=== PATIENT | female | born 1970 | race Caucasian/White ===

== ENCOUNTER 2020-11-27 18:49 | Emergency (ER) | payer BC ==
[2020-11-27] MEDS ORDERED: cefTRIAXone 1 GM Vial IM ONE (19:40)
--- NOTE | 2020-11-27 19:46 | EDM.PDOC ---
ED HPI GENERAL MEDICAL PROBLEM - General Chief Complaint: ENT Problem Stated Complaint: TOOTH PAIN Time Seen by Provider: 11/27/20 19:35 Source of Information: Reports: Patient History Limitations: Reports: No Limitations - History of Present Illness INITIAL COMMENTS - FREE TEXT/NARRATIVE: Was seen by dentis last 3 days and told she needed to see oral surgeon, will need to have teeth pulled . Was placed on amoxicillin , States pain around the tooth in the lower right jaw is worse , getting more swollen , now has swelling in the tongue and low grade fever, Thinks amoxicillin not effective Onset: Today Duration: Hour(s):, Getting Worse Location: Reports: Face Severity: Moderate Improves with: Reports: Medication Worsens with: Reports: None Context: Reports: Other Associated Symptoms: Reports: Headaches Treatments EXHIBIT ARTIST: Reports: Acetaminophen, Other Medication(s) (aoxicillin) - Related Data Allergies Allergy/AdvReac Type Severity Reaction Status Date / Time clindamycin Allergy Hives Verified 11/27/20 19:56 Home Meds: Home Meds Acetaminophen [Tylenol Extra Strength] 500 mg PO TID 11/27/20 [History] Amoxicillin 500 mg PO TID 11/27/20 [History] Amoxicillin/Clavulanate K [Augmentin 875-125 MG] 1 tab PO BID #20 tablet 11/27/20 [Rx] Chlorthalidone 50 mg PO DAILY #30 tablet 11/27/20 [Rx] Ibuprofen 400 mg PO TID 11/27/20 [History] Omeprazole Magnesium [Prilosec Otc] 20 mg PO DAILY 11/27/20 [History] Past Medical History Other HEENT History: dental extractions Social & Family History - Family History Family Medical History: Unobtainable - Tobacco Use Tobacco Use Status *Q: Never Tobacco User Second Hand Smoke Exposure: No - Caffeine Use Caffeine Use: Reports: Soda Caffeine Use Comment: drinks 6 12 oz cans of [employer] [facility] [employer] [facility] ED ROS ENT - Review of Systems Review Of Systems: See Below Constitutional: Reports: No Symptoms HEENT: Reports: Dental Pain, Other (facil swelling ) Respiratory: Reports: No Symptoms Cardiovascular: Reports: No Symptoms Endocrine: Reports: No Symptoms GI/Abdominal: Reports: No Symptoms Musculoskeletal: Reports: No Symptoms Skin: Reports: No Symptoms Neurological: Reports: No Symptoms Psychiatric: Reports: No Symptoms ED EXAM, ENT - Physical Exam Exam: See Below Exam Limited By: No Limitations General Appearance: Alert, WD/WN, No Apparent Distress Eye Exam: Bilateral Eye: EOMI Ears: Normal TMs Nose: Normal Inspection Mouth/Throat: Dental Pain, Dental Tenderness, Gum Swelling, Throat Pain, Tongue Swelling (minimal in base of tongue) Head: Atraumatic, Normocephalic Respiratory/Chest: No Respiratory Distress, Lungs Clear Course - Vital Signs Last Recorded V/S: Last Vital Signs Temp 37.4 C 11/27/20 19:05 Pulse 100 11/27/20 19:05 Resp 16 11/27/20 19:05 BP 182/98 H 11/27/20 20:23 Pulse Ox 100 11/27/20 19:05 - Orders/Labs/Meds Meds: Medications Discontinued Medications Generic Name Dose Route Start Last Admin Trade Name Gema PRN Reason Stop Dose Admin Ceftriaxone Sodium 1 gm 11/27/20 19:40 11/27/20 19:48 Ceftriaxone 1 Gm Vial IM 11/27/20 19:41 1 gm ONETIME ONE Administration Hydralazine HCl 50 mg 11/27/20 20:00 11/27/20 20:23 Hydralazine 50 Mg Tab PO 11/27/20 20:01 50 mg NOW STA Administration - Re-Assessments/Exams Free Text/Narrative Re-Assessment/Exam: 11/27/20 19:45 pt given IM rocephin , will switch antibiotic to Augmentin , To keep appt with dentist Departure - Departure Time of Disposition: 20:23 Disposition: Home, Self-Care 01 Condition: Fair Clinical Impression: Dental caries, Dental caries extending into dentin, Gingivitis, acute, Infected dental caries, Hypertension - Discharge Information *PRESCRIPTION DRUG MONITORING PROGRAM REVIEWED*: Not Applicable *COPY OF PRESCRIPTION DRUG MONITORING REPORT IN PATIENT [id number]: Not Applicable Prescriptions: Amoxicillin/Clavulanate K [Augmentin 875-125 MG] 1 tab PO BID #20 tablet Chlorthalidone 50 mg PO DAILY #30 tablet Referrals: Thor Chapman MD [Primary Care Provider] - Forms: ED Department Discharge Additional Instructions: 1) Warm salt water rinses 3 times daily 2) Keep appointment with dentist 3) Make appointment to see your PCp for Blood pressure management Sepsis Event Note (ED) - Evaluation Sepsis Screening Result: No Definite Risk - Focused Exam Vital Signs: Vital Signs Temp Pulse Resp BP BP BP Pulse Ox 11/27/20 20:23 182/98 H 11/27/20 19:50 184/97 H 11/27/20 19:05 37.4 C 100 16 182/98 H 182/98 H 100
[2020-11-27] MEDS ORDERED: hydrALAZINE 50 MG Tab PO STA (20:00)
== END 2020-11-27 21:38 | disposition home or self-care (01) ==
LOC: FB.ED 18:49
DX: K04.7 Periapical abscess without sinus (principal); K02.9 Dental caries, unspecified; K05.00 Acute gingivitis, plaque induced; I10 Essential (primary) hypertension; Z98.818 Other dental procedure status; Z88.1 Allergy status to other antibiotic agents
CPT/HCPCS: 96372; 99282; 99283; A9270; J0696